=== PATIENT | female | born 1985 | race Two or more races ===

== ENCOUNTER 2018-08-11 15:22 | Emergency (ER) | payer MEDICAID, OTHER ==
[~2018-08-11] VITALS: Ht 154.9 cm; Wt 81.6 kg
[2018-08-11 15:52] VITALS: BP 127/89
== END 2018-08-11 16:44 | disposition home or self-care (01) ==
LOC: ER 15:22
DX: H66.91 Otitis media, unspecified, right ear (principal); J06.9 Acute upper respiratory infection, unspecified

== ENCOUNTER 2021-02-14 06:37 | Emergency (ER) | payer MEDICAID ==
[~2021-02-14] VITALS: Ht 157.5 cm; Wt 86.2 kg
[2021-02-14 08:00] VITALS: BP 121/78
[2021-02-14] MEDS ORDERED: KETOROLAC TROMETH 60MG/2ML VIAL IM ONE (08:00)
== END 2021-02-14 08:23 | disposition home or self-care (01) ==
LOC: ER 06:37
DX: S16.1XXA Strain of muscle, fascia and tendon at neck level, initial encounter (principal); T50.Z95A Adverse effect of other vaccines and biological substances, initial encounter; Y92.89 Other specified places as the place of occurrence of the external cause; X58.XXXA Exposure to other specified factors, initial encounter; Y93.89 Activity, other specified; Y99.8 Other external cause status
CPT/HCPCS: 96372; 99283; J1885

== ENCOUNTER 2022-10-24 07:50 | Emergency (ER) | payer MEDICAID ==
[~2022-10-24] VITALS: Ht 154.9 cm; Wt 83.0 kg
[2022-10-24 08:14] VITALS: BP 132/97
[2022-10-24] MEDS ORDERED: ONDANSETRON ODT 4 MG TAB PO ONE (08:30)
[2022-10-24] MEDS ORDERED: SUMAtriptan SUCCINATE 6 MG/0.5 ML VL SC ONE (08:30)
[2022-10-24] MEDS ORDERED: AZIT500T66 PO (08:57)
[2022-10-24] MEDS ORDERED: SUMA50TA2 PO (08:57)
== END 2022-10-24 09:03 | disposition home or self-care (01) ==
LOC: ER 07:50
DX: G43.909 Migraine, unspecified, not intractable, without status migrainosus (principal); J03.90 Acute tonsillitis, unspecified; Z79.2 Long term (current) use of antibiotics; Z79.899 Other long term (current) drug therapy
CPT/HCPCS: 96372; 99283; J3030; Q0162